=== PATIENT | female | born 1970 | race Caucasian/White ===

== ENCOUNTER 2025-01-06 03:41 | Inpatient (IN) | payer MEDICAID ==
[~2025-01-06] VITALS: Ht 152.4 cm; Wt 116.1 kg
[2025-01-06] VITALS (10 sets, daily range): BP systolic 119–151; BP diastolic 56–79; PULSE 64–95; RESP 12–22; TEMP 97.3–97.8; O2SAT 95–100
--- NOTE | 2025-01-06 03:53 | Physician Documentation ---
History of Present Illness ~ Chief Complaint: Chest Pain Stated Complaint: SEE CHIEF Time Seen by MD: 03:53 HPI 54-year-old female history of pulmonary hypertension presenting for transfer from outside hospital for NSTEMI. She reports she moved into a trailer recently and does not have her nighttime oxygen and has been more and more short of breath. She does not have any chest pain. She went into outside hospital and was found to have elevated troponin of 0.17 increase to 0.22 ng/mL. She had CT angiogram of her chest no evidence of pulmonary embolism scattered areas of mild atelectasis Medication Reconciliation Allergies: Coded Allergies: atropine (Verified Allergy, Unknown, unknown, 01/06/25) codeine (Verified Allergy, Unknown, upset stomach, 01/06/25) demecarium bromide (Verified Allergy, Unknown, unknown, 01/06/25) Scheduled Aspirin (Aspirin), 1 TAB PO DAILY, (Reported) Buspirone Hcl* (Buspar*), 2 TAB PO HS, (Reported) Carvedilol (Coreg), 1 TAB PO Q12H, (Reported) Cholecalciferol (Vitamin D), 1 TAB PO DAILY, (Reported) Divalproex Sodium DR* (Depakote DR*), 2 TAB PO DAILY, (Reported) Fenofibrate Nanocrystallized (TRICOR tablet), 160 MG PO DAILY, (Reported) Fluticasone/Umeclidin/Vilanter (Trelegy Ellipta 200-62.5-25), 1 PUFFS INH DAILY, (Reported) Folic Acid* (Folic Acid*), 1 MG PO DAILY, (Reported) Furosemide (Lasix), 1 TAB PO DAILY, (Reported) Losartan Potassium* (Cozaar*), 1 TAB PO DAILY, (Reported) Lurasidone HCl (Latuda), 1 TAB PO BID, (Reported) Metformin Hcl (Metformin Hcl), 1 TAB PO Q12H, (Reported) Topiramate (Topiramate), PO Q12H, (Reported) Scheduled PRN Albuterol Sulfate (Ventolin Hfa), 2 PUFFS INH Q6H PRN for wheezing, (Reported) Hydrocodone Bit/Acetaminophen 5/325 MG (Forsan 5/325 MG), 1 TAB PO Q4HPRN PRN for pain, (Reported) Review of Systems All Other Systems at this time: Reviewed and Negative Respiratory: Reports: shortness of breath, SOB with exertion; Denies: cough Cardiovascular: Denies: chest pain Physical Exam Physical Exam Chronically ill-appearing no acute distress Cardiac no murmur Pulmonary no wheezing no rhonchi no rales Abdomen soft nontender Lower extremity no edema Progress Results/Orders Reviewed/noted all lab results: Yes Results/Orders Orders - JENNIFER GIMENEZ MD Monitor (01/06/25 03:51) Saline Lock (01/06/25 03:51) Oxygen (01/06/25 03:51) Hs Troponin I W Calculations (01/06/25 05:51) Hs Troponin I W Calculations (01/06/25 06:51) Heparin 25,000 Unit/250ml Bag (Heparin 2 (01/06/25 03:55) Heparin 10,000 Unit/Ml 1ml (Heparin 10,0 (01/06/25 03:55) Cbc/Diff (01/07/25 03:00) Cbc/Diff (01/08/25 03:00) Cbc/Diff (01/09/25 03:00) Cbc/Diff (01/10/25 03:00) Cbc/Diff (01/11/25 03:00) Page Hospitalist (01/06/25 04:28) Fill Out Med Reconciliation (01/06/25 04:28) PTT (01/06/25 04:48) Heparin 10,000 Unit/Ml 1ml (Heparin 10,0 (01/06/25 04:50) Heparin 25,000 Unit/250ml Bag (Heparin 2 (01/06/25 04:50) Heparin 10,000 Unit/Ml 1ml (Heparin 10,0 (01/06/25 04:50) Completed Orders - JENNIFER GIMENEZ MD Cbc/Diff (01/06/25 03:51) PBNP (01/06/25 03:51) Electrocardiogram (01/06/25 03:51) CMP (01/06/25 03:51) Hs Troponin I W Calculations (01/06/25 03:51) Cardiac Ptt (01/06/25 03:51) Pt Inr (01/06/25 03:51) Vital Signs 01/06/25 01/06/25 03:52 03:59 Temp 98.1 Pulse 97 Resp 22 20 B/P (MAP) 151/90 Pulse Ox 96 Laboratory Tests Test 01/06/25 04:00 White Blood Count 9.1 Red Blood Count 4.49 Hemoglobin 13.0 Hematocrit 39.1 Mean Corpuscular Volume 87.1 Mean Corpuscular Hemoglobin 28.9 Mean Corpuscular Hemoglobin Concent 33.2 Red Cell Distribution Width 16.5 H Platelet Count 350 Mean Platelet Volume 7.9 Neutrophils (%) (Auto) 57.5 Lymphocytes (%) (Auto) 29.4 Monocytes (%) (Auto) 10.4 Eosinophils (%) (Auto) 1.7 Basophils (%) (Auto) 1.0 Neutrophils # (Auto) 5.2 Lymphocytes # (Auto) 2.7 Monocytes # (Auto) 0.9 Eosinophils # (Auto) 0.2 Basophils # (Auto) 0.1 CBC Comment Prothrombin Time 10.9 INR International Normalized Ratio 1.1 APTT (Heparin Protocol) 44 L Coagulation Comments Sodium Level 133 L Potassium Level 3.8 Chloride Level 101 Carbon Dioxide Level 21.4 L Anion Gap 11 Blood Urea Nitrogen 6 L Creatinine 0.59 Estimated GFR/1.73 m2 > 90 BUN/Creatinine Ratio 10.2 Glucose Level 97 Calcium Level 8.6 Total Bilirubin 0.4 Aspartate Amino Transf (AST/SGOT) 28 Alanine Aminotransferase (ALT/SGPT) 23 Alkaline Phosphatase 48 Troponin I High Sensitivity 423 *H Pro-B-Type Natriuretic Peptide 231 H Total Protein 6.5 Albumin 3.4 Globulin 3.1 Albumin/Globulin Ratio 1.1 Chemistry Comments EKG/XRAY/CT/US/VASC/MRI EKG : Additional Comment EKG independently interpreted by myself time 0343 indication shortness of breath normal sinus rhythm rate 97 normal axis normal intervals no ST or T-wave abnormalities Medical Decision Making Additional info obtained from: old records Additional Information Pulmonary embolism, pulmonary hypertension, acute coronary syndrome Departure Disposition: ADMITTED INPATIENT Admitted to Inpatient Unit: to hospitalist Impression: Primary Impression: Pulmonary hypertension Additional Impression: NSTEMI (non-ST elevated myocardial infarction) Referrals: NO PRIMARY CARE PROVIDER (PCP) Critical Care Note Total Time (mins): 30 Critical Care Note The very real possibility of a deterioration of this patient's condition required the highest level of my preparedness for sudden, emergent intervention. I provided critical care services, which included medication orders, frequent reevaluations of the patient's condition and response to treatment, ordering and reviewing test results, and discussing the case with various consultants. Excludes time spent performing separately billable procedures. The critical care time associated with the care of the patient was 30 minutes in the acute management of NSTEMI Signature Scribe Signature: osito Attestation: JENNIFER Sutton MD January 06, 2025 03:53
--- NOTE | 2025-01-06 03:54 | ELECTROCARDIOGRAPH REPORT ---
[facility] Test Date: 2025-01-06 Test Time: 03:43:38 Pat Name: AGNIESZKA GARCIA Department: SHORT STAY 1ST FLOOR Room: [place] [address] Gender: F Claims Vice President: MARIELENA : 1970 Requested By: JENNIFER GIMENEZ Order Number: [id number] Reading MD: Dr. Zuly Anguiano Measurements Intervals [place] Rate: 97 P: 35 ID: [id number] QRS: -64 QRSD: 116 T: -30 QT: 393 QTc: 500 Interpretive Statements Sinus rhythm Nonspecific IVCD with LAD DRY ROOM ATTENDANT Inferior infarct, age indeterminate Electronically Signed On 01-06-2025 18:51:[address] Zuly Anguiano Please click the below link to view image of tracing.
[2025-01-06 04:17] LABS: BASOPHILS # (AUTO) 0.1 X10'3 (0-0.2); EOSINOPHILS # (AUTO) 0.2 X10'3 (0-0.9); EOSINOPHILS % (AUTO) 1.7 % (0-6); HEMATOCRIT 39.1 % (35.0-45.0); LYMPHOCYTES # (AUTO) 2.7 X10'3 (1.1-4.8); LYMPHOCYTES % (AUTO) 29.4 % (21-51); MEAN CORPUSCULAR HEMOGLOBIN 28.9 PG (27.0-31.0); MEAN CORPUSCULAR HGB CONC 33.2 g/dL (33.0-36.5); MEAN CORPUSCULAR VOLUME 87.1 FL (78-98); MEAN PLATELET VOLUME 7.9 FL (7.4-10.4); MONOCYTES # (AUTO) 0.9 X10'3 (0-0.9); MONOCYTES % (AUTO) 10.4 % (2-12); NEUTROPHILS # (AUTO) 5.2 X10'3 (1.8-7.7); NEUTROPHILS % (AUTO) 57.5 % (42-75); PLATELET COUNT 350 X10'3 (140-440); RED BLOOD COUNT 4.49 X10'6 (4.20-5.60); RED CELL DISTRIBUTION WIDTH 16.5 % (11.5-14.5); WHITE BLOOD COUNT 9.1 X10'3 (4.5-11.0)
[2025-01-06 04:26] LABS: INR 1.1 INR; PROTHROMBIN TIME 10.9 SECONDS (9.0-12.0)
[2025-01-06 04:33] LABS: ALANINE AMINOTRANSFERASE 23 U/L (12-78); ALBUMIN 3.4 G/DL (3.4-5.0); ALBUMIN/GLOBULIN RATIO 1.1 (1.1-1.5); ALKALINE PHOSPHATASE 48 IU/L (46-116); ANION GAP 11 (8-16); ASPARTATE AMINO TRANSFERASE 28 U/L (10-37); BILIRUBIN,TOTAL 0.4 MG/DL (0.1-1.0); BLOOD UREA NITROGEN 6 MG/DL (7-18); BUN/CREATININE RATIO 10.2 (10.0-20.0); CALCIUM 8.6 MG/DL (8.5-10.1); CHLORIDE 101 MMOL/L (99-107); CREATININE 0.59 MG/DL (0.40-0.90); GLUCOSE 97 MG/DL (70-104); POTASSIUM 3.8 MMOL/L (3.5-5.1); SODIUM 133 MMOL/L (135-145); TOTAL CARBON DIOXIDE 21.4 MMOL/L (24-32); TOTAL PROTEIN 6.5 G/DL (6.4-8.2); eCRCL 79 ML/MIN; eGFR > 90 ML/MIN
[2025-01-06] MEDS ORDERED: TOPI-95 PO (04:33)
[2025-01-06] MEDS ORDERED: DIVA-76 PO (04:33)
[2025-01-06] MEDS ORDERED: CHOL100025 PO (04:33)
[2025-01-06] MEDS ORDERED: BUSP10TA11 PO (04:33)
[2025-01-06] MEDS ORDERED: LURA80TA2 PO (04:33)
[2025-01-06] MEDS ORDERED: HYDR-3965 PO (04:33)
[2025-01-06] MEDS ORDERED: FLUT1BLS16 INH (04:33)
[2025-01-06] MEDS ORDERED: FOLI0.4T6 PO (04:33)
[2025-01-06] MEDS ORDERED: ASPI-1265 PO (04:33)
[2025-01-06] MEDS ORDERED: FURO-150 PO (04:33)
[2025-01-06] MEDS ORDERED: METF-436 PO (04:33)
[2025-01-06] MEDS ORDERED: FENO48TA15 PO (04:33)
[2025-01-06] MEDS ORDERED: ALBU18HF2 INH (04:33)
[2025-01-06] MEDS ORDERED: CARV3.12 PO (04:33)
[2025-01-06] MEDS ORDERED: LOSA-415 PO (04:33)
[2025-01-06 04:41] LABS: PRO BRAIN NATRIURETIC PEPTIDE 231 PG/ML (0-125)
[2025-01-06] MEDS ORDERED: heparin 25,000 UNIT/250ml bag 250 ML IV PRN (04:50)
[2025-01-06] MEDS ORDERED: heparin 10,000 units/1 ML INJ IV PRN (04:50)
[2025-01-06] MEDS: heparin 10,000 units/1 ML INJ IV ONE (04:53)
[2025-01-06] MEDS: heparin 25,000 UNIT/250ml bag 250 ML IV PRN (05:03)
[2025-01-06] MEDS ORDERED: docusate sod 100mg capsule PO PRN (05:25)
[2025-01-06] MEDS ORDERED: magnesium sulf-water 4G/100mL 100 ML IV PRN (05:25)
[2025-01-06] MEDS ORDERED: magnesium Cl slow-release 64mg tablet PO PRN (05:25)
[2025-01-06] MEDS ORDERED: acetaminophen 325mg tablet PO PRN (05:25)
[2025-01-06] MEDS ORDERED: mag hydrox/Alum hydrox/simeth 30ml oral suspension PO PRN (05:25)
[2025-01-06] MEDS ORDERED: potassium Cl 40MEQ/1/2NS 520ml 520 ML IV PRN (05:25)
[2025-01-06] MEDS ORDERED: morphine 2 MG/ML inj. syringe IV PRN ×2 (05:25)
[2025-01-06] MEDS ORDERED: potassium Cl 20 mEq SR tablet PO PRN ×2 (05:25)
[2025-01-06] MEDS ORDERED: magnesium hydroxide 30ml (MOM) UD suspension PO PRN (05:25)
[2025-01-06] MEDS: PERFLUTREN PROTEIN-A MICROSPHR (Optison) 0.22 MG/ML 3ML VIAL IV ONE (05:25)
[2025-01-06] MEDS ORDERED: magnesium sulf-water 2g/50mL 50 ML IV PRN (05:25)
[2025-01-06] MEDS: MESSAGE TO NURSING IV ONE ×3 (05:26→18:15)
[2025-01-06] MEDS ORDERED: nicotine 21mg patch - 24 hr TD PRN (05:30)
[2025-01-06] MEDS ORDERED: ipratropium/albuterol 3ml nebule NEB PRN (05:30)
--- NOTE | 2025-01-06 05:41 | HISTORY AND PHYSICAL-Residence ---
History & Physical Providers to CC Resident Creating Document: ALBERT CHAPARRO RES ~ History of Present Illness Primary Medical Doctor: Ethan Gutiérrez [facility] Reason for Admit\Complaint: T2MI with SOB from CHF exacerbation, U/L PHTN History of Present Illness A 54 years old female with a past medical history of asthma, COPD, T2 DM, diastolic CHF with unknown ejection fraction, hypertension, ADI with class four obesity BMI 50, pulmonary hypertension, UTI history, mental issues with bipolar disorder, schizophrenia, mood disorder, anxiety, psychogenic dysphonia and S/p multiple orthopedic surgeries presented with acute progressive shortness of breath and generalized weakness with the given away bilateral feet to stand up since last night. She was transferred from the [facility] for the elevated Trop and progressive SOB, put her on the IV heparin for the further management. She endorsed that she has been having lacking of her home oxygen which is 2L/ min [place] around the dinner time and all nights when she moved to the new residential area for two-five days now in addition of her Trelogy machine has not been set up yet as well. She started having the progressive SOB which was associated with the swelling over the bilateral legs but denied for the Orthopnea and PND as long as she is on the night time oxygen supply. She usually takes Lasix 20 mg at home alternative days only as she developed hyponatremia. She denies any chest pressure or pain, nausea and vomiting, back pain, coughing, and bed resting. She is fully ambulatory and not having any recent malignancy and its treatment, long distance travelling history. She was found to have elevated Troponin levels in [facility] and put her on IV heparin. Her CTA chest is cleared for acute PE. She is regularly using her inhalers for her COPD and asthma. Allergies: Coded Allergies: atropine (Verified Allergy, Unknown, unknown, 01/06/25) codeine (Verified Allergy, Unknown, upset stomach, 01/06/25) demecarium bromide (Verified Allergy, Unknown, unknown, 01/06/25) Home Medications Home Medications Active Reported Ventolin Hfa (Albuterol Sulfate) 90 Mcg Hfa.aer.ad 2 Puffs INH Q6H PRN 30 Days Trelegy Ellipta 200-62.5-25 (Fluticasone/Umeclidin/Vilanter) 200-62.5 Blst.w.dev 1 Puffs INH DAILY 30 Days Topiramate 50 Mg Tablet PO Q12H 30 Days Kell 5/325 MG (Acetaminophen/Hydrocodone Bitart) 5 Mg/325 Mg Tablet 1 Tab PO Q4HPRN PRN 3 Days Metformin Hcl 500 Mg Tablet 1 Tab PO Q12H 30 Days Cozaar* (Losartan Potassium) 25 Mg Tablet 1 Tab PO DAILY 30 Days Latuda (Lurasidone HCl) 80 Mg Tablet 1 Tab PO BID 30 Days Lasix (Furosemide) 20 Mg Tablet 1 Tab PO DAILY 30 Days Folic Acid* (Folic Acid) 0.4 Mg Tablet 1 Mg PO DAILY 30 Days TRICOR tablet (Fenofibrate Nanocrystallized) 48 Mg Tablet 160 Mg PO DAILY [address]* (Divalproex Sodium) 500 Mg Tablet.dr 2 Tab PO DAILY 30 Days Coreg (Carvedilol) 3.125 Mg Tablet 1 Tab PO Q12H 30 Days Vitamin D (Cholecalciferol) 1,000 Unit Tablet 1 Tab PO DAILY 30 Days Buspar* (Buspirone HCl) 10 Mg Tablet 2 Tab PO HS Aspirin 81 Mg Tab.chew 1 Tab PO DAILY 30 Days Past Medical History Past Medical History asthma, COPD, T2 DM, diastolic CHF with unknown ejection fraction, hypertension, ADI with class four obesity BMI 50, pulmonary hypertension, UTI history, mental issues with bipolar disorder, schizophrenia, mood disorder, anxiety, psychogenic dysphonia Past Surgical History Surgical History Comment S/p multiple orthopedic surgeries Past Social History Social History Comment She is in chronic smoker, still smoking and smokes 1-1/2 pack of cigarettes, marijuana, denies using any illicit drugs. She is a chronic alcohol user with 8-14 oz of beers every day. She currently moved to the [facility] area and she can walk around without using any walking aids. ROS All Other Systems: Reviewed and Negative ROS Hours were reviewed WNL, except for the above-mentioned in HPI Respiratory: Reports: shortness of breath, SOB with exertion; Denies: cough Cardiovascular: Denies: chest pain Exam Vitals: Vital Signs Date Time Temp Pulse Resp B/P (MAP) Pulse Ox O2 Delivery O2 Flow Rate FiO2 01/06/25 05:05 92 15 130/75 (93) 100 2.0 01/06/25 03:52 98.1 General: General: Well alert, well oriented, not confused, not agitated, not in acute distress, well cooperated during the physical. HEENT: HEENT: Conjunctive are pink, sclerae clear, no icterus, pupil is equal in both sides, reactive to light, no ear discharge, no pharyngeal erythema or an edema, mouth and lips are moist. Neck: Neck: Supple, no JVD, no lymphadenopathy and thyromegaly. Chest: Lungs:Equal air entry on both lungs, no additional sounds except for the bilateral basal crackles Cardiovascular: Heart: S1-S2 regular sinus rhythm and, regular rate, no gallops, no rubs, no murmurs Abdomen: Abdomen: No visible peristalsis, Bowel sounds present on auscultation, soft, nontender, no guarding, no rigidity Extremities: Extremities: No obvious deformities, 2+ pitting edema bilaterally, capillary refill intact, able to wiggle toes both sides, peripheral pulsations are intact on both sides Central Nervous System: SHOP DIRECTOR: No focal neurological deficits, no motor and sensory weakness in all 4 extremities, could move all 4 extremities Musculoskeletal: Musculoskeletal: No joint swelling, deformities, inflammations, and no scoliosis and back tenderness Skin: Skin: No active skin lesions and rashes Diagnostic Data Last Recorded Lab Results: 01/06/25 0400 01/06/25 0400 Diagnostic Data: Laboratory Tests Test 01/06/25 04:00 Prothrombin Time 10.9 SECONDS (9.0-12.0) INR International Normalized Ratio 1.1 INR APTT (Heparin Protocol) 44 SECONDS (45-60) L Coagulation Comments Counseling Services Smoking & Tobacco Cessation: 3-10 Minutes Advance Care Planning Advanced Care plannin - 30 Minutes Additional Plan A 54 years old female with a past medical history of asthma, COPD, T2 DM, diastolic CHF with unknown ejection fraction, hypertension, ADI with class four obesity BMI 50, pulmonary hypertension, UTI history, mental issues with bipolar disorder, schizophrenia, mood disorder, anxiety, psychogenic dysphonia and S/p multiple orthopedic surgeries presented with acute progressive shortness of breath and generalized weakness with the given away bilateral feet to stand up since last night. # acute hypoxic respiratory failure from acute on chronic CHF with unknown EF exacerbation # elevated troponin-likely type 2 AR from acute hypoxic respiratory failure # elevated proBNP -2D echo was pending -patient was transferred from [facility] on current IV heparin with no chest pain, no significant ST-T changes in EKG -please consider for cardiology consultation, to rule out ACS -given one time dose of 40 mg Lasix in ER, followed by 20 mg b.i.d. -continue her baseline oxygen 2 L/min -PT eval # pulmonary hypertension # COPD, asthma-not exacerbation # ADI class four obesity BMI 50 # T2DM -her CPAP/BiPAP was not set up at home yet -continue CPAP at night -continue her home medication metformin -continue ipratropium/albuterol inhalation q.6 hours as needed # electrolyte imbalance-hyponatremia -current sodium 133 with no neurological symptoms -continue monitoring including neurological monitoring, currently on IV Lasix therapy for her CHF exacerbation -please plan to downgrade or adjust lasix as per pt's condition # history of multiple mental issues- bipolar disorder, schizophrenia, mood disorder, anxiety, psychogenic dysphonia -home medication reconciliation was done, continue appropriately CODE STATUS: Full code DVT prophylaxis: Sc heparin Analgesia/sedation: Acetaminophen/IV morphine as needed Lines/tubes: Peripheral lines GI prophylaxis: None Nutrition: Heart healthy Prognosis-guarded Disposition: Continue medical management, cardiology consultation, pending 2D echo, monitoring electrolytes, PT eval and DC plan. Resident MD attestation: Patient was seen, examined and discussed with attending MD, Dr. Gil CHAPARRO MD Internal Medicine Resident, PGY2 [facility] Attending Physician Attestation Evaluation via HIPAA compliant AV device. I discussed the case with the resident and I agree with the resident's documentation. 54-year-old woman with a history of multiple chronic health conditions including COPD, chronic hypoxemia requiring supplemental oxygen, pulmonary hypertension and chronic diastolic heart failure now transferred from an outside medical facility for the evaluation of an elevated troponin measurement. The patient has lacked access to her prescribed supplemental oxygen for several days. The treatment plan includes: Usual therapy for probable type 2 NSTEMI with anti-platelet therapy, beta- blockade and IV unfractionated heparin. A Cardiology consultation has been requested. Transthoracic echocardiogram to assess for new focal wall motion abnormalities and to assess LV, RV function as well as to estimate PA pressures. Supplemental O2 to maintain oxygen saturation > 90%. Bronchodilator therapy with albuterol/ipratropium and inhaled corticosteroid therapy with budesonide for treatment of the patient's underlying obstructive lung disease. Time spent 70 minutes. Date of Service: January 06, 2025 Billing Provider: YOVANA SAUCEDA MD, TIN, RES January 06, 2025 05:41 YOVANA SAUCEDA MD January 06, 2025 07:52
[2025-01-06] MEDS: furosemide 10 MG/1 ML 10ml inj IV ONE (05:55)
[2025-01-06] MEDS ORDERED: HYDROcodone/acetaminophen 5mg/325mg tablet PO PRN (06:25)
--- NOTE | 2025-01-06 07:03 | RADIOLOGY REPORT ---
EXAM: XR Chest, 1 View CLINICAL INDICATION: Hx of CHF, PHTN, c/o SOB TECHNIQUE: Frontal view of the chest. COMPARISON: None FINDINGS: LUNGS AND PLEURAL SPACES: Unremarkable. No consolidation. No pneumothorax. HEART: Cardiomegaly without overt failure. MEDIASTINUM: Unremarkable. Normal mediastinal contour. BONES/JOINTS: Unremarkable. No acute fracture. OTHER FINDINGS: . IMPRESSION: Cardiomegaly without overt failure.
[2025-01-06 07:32] LABS: URINE AMPHETAMINE SCREEN NEGATIVE (Neg); URINE BARBITUATE SCREEN NEGATIVE (Neg); URINE BENZODIAZEPINES SCREEN NEGATIVE (Neg); URINE CANNABINOID SCREEN POSITIVE (Neg); URINE COCAINE SCREEN NEGATIVE (Neg); URINE METHADONE SCREEN NEGATIVE (Neg); URINE OPIATE SCREEN NEGATIVE (Neg); URINE PHENCYCLIDINE SCREEN NEGATIVE (Neg)
[2025-01-06] MEDS ORDERED: dextrose 50%-water 50ml dispensing syringe IV PRN ×2 (07:40)
[2025-01-06] MEDS ORDERED: DEXTROSE 15 GM of carb/4 tabs (each vial/BOTTLE has 4 tablets) PO PRN ×2 (07:40)
[2025-01-06] MEDS ORDERED: glucagon, human recombinant 1mg kit SUBCUT PRN (07:40)
[2025-01-06 07:57] LABS: PHOSPHORUS 3.1 MG/DL (2.3-4.5); THYROID STIMULATING HORMONE 0.84 ulU/ml (0.34-4.50)
[2025-01-06] MEDS: K and/or MAG REPLACEMENT MC SCH (08:00)
[2025-01-06] MEDS ORDERED: metFORMIN 500mg tablet PO SCH (08:00)
[2025-01-06 08:03] LABS: BILIRUBIN,URINE NEGATIVE (Neg); CLARITY,URINE SLIGHTLY CLOUDY (Clear); COLOR,URINE STRAW (Yellow); GLUCOSE, URINE NEGATIVE (Neg); KETONES,URINE NEGATIVE (Neg); LEUKOCYTE ESTERASE ,URINE SMALL (Neg); NITRITES, URINE POSITIVE (Neg); OCCULT BLOOD,URINE TRACE-INTACT (Neg); PROTEIN,URINE NEGATIVE (Neg); UROBILINOGEN,URINE 0.2 E.U/dL (0.2-1.0)
[2025-01-06 08:10] LABS: CHOL/HDL RATIO 2.1 (0.00-4.99); CHOLESTEROL 144 MG/DL (0-200); HDL CHOLESTEROL 69 MG/DL (35-60); LDL CHOLESTEROL 50 MG/DL (50-100); TRIGLYCERIDES 91 MG/DL (20-135)
[2025-01-06 08:14] LABS: HEMOGLOBIN A1C 5.3 % (4.5-6.2)
[2025-01-06] MEDS: ipratropium/albuterol 3ml nebule NEB PRN (08:22)
[2025-01-06 08:24] LABS: UA COLLECTION TYPE VOIDED
[2025-01-06] MEDS: folic acid 0.4mg tablet PO SCH (08:24)
[2025-01-06] MEDS: lurasidone 20mg tablet PO SCH (08:24)
[2025-01-06 08:25] LABS: BACTERIA,URINE 4+ /HPF (Neg); MUCUS STRANDS NONE SEEN /LPF (Neg); RBC,URINE NONE SEEN /HPF (0-2); SQUAMOUS EPITHELIAL CELL,UR FEW /LPF (FEW)
[2025-01-06] MEDS: carVEDilol 3.125mg tablet PO SCH (08:25)
[2025-01-06] MEDS: fenofibrate 48mg tablet PO SCH (08:25)
[2025-01-06] MEDS: divalproex sodium 500mg tablet.DR PO SCH (08:26)
[2025-01-06] MEDS: losartan 25mg tablet PO SCH (08:27)
[2025-01-06] MEDS: cholecalciferol (vitamin D3) 1,000 unit (25mcg) tablet PO SCH (08:28)
[2025-01-06] MEDS: aspirin 81mg tab.chew PO SCH (08:28)
[2025-01-06] MEDS: heparin 10,000 units/1 ML INJ IV PRN (11:11)
[2025-01-06] MEDS: atorvastatin 20mg tablet PO ONE (11:14)
[2025-01-06] MEDS: INSULIN LISPRO 100 UNIT/ML INSULN.PEN MULTI-DOSE SQ SCH (12:00)
--- NOTE | 2025-01-06 17:04 | CARDIOLOGY REPORT ---
APPROVED REPORT EXAM: Comprehensive 2D, Doppler, and color-flow Echocardiogram. Patient Location: 302 Heart Rate: 95 bpm Rhythm: NSR Indications CONGESTIVE HEART FAILURE ELEVATED PRO BNP 231 HS TROPONIN 423,411 COPD HTN DIGITAL TECH None. PRIOR ECHOCARDIOGRAM: None. 2D Dimensions RVDd 2.8 cm IVSd 1.5 (0.7-1.1cm) LVDd 4.2 cm PWd 1.7 (0.7-1.1cm) IVSs 1.6 (0.8-1.2cm) LVDs 2.9 (2.5-4.0cm) PWs 1.7 (0.8-1.2cm) LVOT Diameter 1.99 (1.8-2.4cm) LVEF(%) 65.0 (>50%) FS (%) 33.0 % SV 46.8 ml CO 4.5 L/min M-Mode Dimensions Left Atrium(MM) 4.48 (2.5-4.0cm) Aortic Root 3.48 (2.2-3.7cm) Aortic Cusp Exc 2.04 (1.5-2.0cm) Aortic Valve AoV Peak Dwayne. 191.4 cm/s AoV VTI 36.4 cm AO Peak GR. 14.7 mmHg AO Mean GR. 7 mmHg LVOT VTI 28.06 cm LVOT Peak Dwayne. 123.7 cm/s ABIGAIL(VTI)/BSA 2.41 cm2/m2 ABIGAIL (VTI) 2.41 cm2 Mitral Valve MV E Velocity 89.1 cm/s MV Peak Gr. 4 mmHg MV DECEL TIME 256 ms MV A Velocity 94.2 cm/s MV PHT 52 ms E/A Ratio 0.9 MVA (PHT) 4.23 cm2 MV [id number] cm/s LEFT VENTRICLE Normal LV size and function. Mild concentric hypertrophy. LVEF is 65%. RIGHT VENTRICLE RV is normal size and function. ATRIA Left atrium is mildly dilated. The right atrium size is normal. AORTIC VALVE Trileaflet AV appears mildly sclerotic without stenosis. No insufficiency. MITRAL VALVE The mitral valve is normal in structure. Mild mitral annular calcification. No insufficiency. TRICUSPID VALVE TV appears structurally normal with no regurgitation. PULMONIC VALVE Pulmonic valve is not well visualized. GREAT VESSELS Aortic root is normal in size. PERICARDIUM Normal pericardium. No effusion. Other Information Study Quality: Fair Technically limited study due to Body habitus. Conclusion Normal LV size and function. Mild concentric hypertrophy. LVEF is 65%. RV is normal size and function. Left atrium is mildly dilated. The right atrium size is normal. Trileaflet AV appears mildly sclerotic without stenosis. No insufficiency. The mitral valve is normal in structure. Mild mitral annular calcification. No insufficiency. TV appears structurally normal with no regurgitation. Normal pericardium. No effusion.
[2025-01-06] MEDS: ondansetron/PF 4mg/2ml inj IV PRN (17:22)
[2025-01-06] MEDS ORDERED: aminophylline 500mg/20ml vial IV PRN (18:30)
[2025-01-06] MEDS ORDERED: metoprolol tartrate 1mg/ml inj IV PRN (18:30)
[2025-01-06] MEDS ORDERED: nitroGLYCERIN 0.4mg SUBLingual tab SL PRN (18:30)
--- NOTE | 2025-01-06 18:34 | PROGRESS NOTE ---
Daily Progress Note Providers to CC ~ Antibiotic Timeout Antibiotic Ordered?: No Subjective Patient has been chest pain-free and has not never experienced chest pain during this episode however she has been out of her oxygen for a couple of days due to not having the power set up in her trailer and thus she did not have her nocturnal oxygen or trilogy machine at night. The patient came to the ED because she was experiencing lower extremity weakness I could not get up the stairs- her initial high sensitivity troponin was 423 in his downtrended to 379- Dr. aNik bass fisher recommended to obtain a stress test in the morning the patient will remain on heparin drip. Objective Vital Signs Date Time Temp Pulse Resp B/P (MAP) Pulse Ox O2 Delivery O2 Flow Rate FiO2 01/06/25 15:00 97.4 83 20 132/56 (81) 100 Nasal Cannula 2.0 01/06/25 08:24 28 Result Diagram: 01/06/25 0400 01/06/25 0548 Gen. No acute distress alert and oriented �4, morbidly obese Lungs clear to ascultation bilaterally, no wheezes rales or rhonchi appreciated Heart normal sinus rhythm no murmurs rubs or clicks noted Abdomen soft nontender bowel sounds are normoactive Lower extremities no clubbing cyanosis, nor edema appreciated bilaterally Coagulation Studies Laboratory Tests Test 01/06/25 04:00 01/06/25 17:36 Prothrombin Time 10.9 SECONDS (9.0-12.0) INR International Normalized Ratio 1.1 INR APTT (Heparin Protocol) 70 SECONDS (45-60) H Coagulation Comments Problem\Assessment\Plan Problems/Diagnosis: (1) NSTEMI (non-ST elevated myocardial infarction) # NSTEMI- Troponins are downtrending Evaluated by cardiology whom recommended a stress test in the morning The patient had an echocardiogram which demonstrated an LVEF of 65% Received carvedilol and atorvastatin # bipolar/ schizophrenia Continue all home medications # [id number] diabetes mellitus- blood sugars are under good control Hemoglobin A1c is 5.3 And a hyper and hypoglycemic protocol # Tobacco abuse-I spent 12 minutes on the morning of 01/06/2025 discussing smoking cessation with the patient including the risk of continuing smoke: Lung cancer, stroke, heart attack, poor wound healing, increased in facial wrinkling, cigarette smoke also leads a foul smell on clothing and fabrics, risk of MRSA skin infections. How cigarettes have been scientifically engineered to be as addictive as humanly possible. The patient refused any nicotine replacement therapy. Date of Service: January 06, 2025 Billing Provider: MARCIA GOMEZ DO Common Visit Codes: NOT BILLABLE (Admitted after midnight to be billed by sand cutting machine operator) Secondary Visit Codes: 11275-[id number] CHNG SMOKING >10MIN MARCIA GOMEZ DO January 06, 2025 18:34
[2025-01-06] MEDS: furosemide 20 MG/2 ML vial IV SCH (19:11)
[2025-01-06] MEDS: busPIRone 5mg tablet PO SCH (20:54)
[2025-01-06] MEDS: divalproex sodium 500mg tablet.DR PO ONE (21:41)
[2025-01-07] VITALS (15 sets, daily range): BP systolic 112–147; BP diastolic 62–89; PULSE 76–100; RESP 11–25; TEMP 97.1–98.1; O2SAT 93–100
[2025-01-07 00:20] LABS: BASOPHILS % (AUTO) 0.3 % (0-1); EOSINOPHILS # (AUTO) 0.2 X10'3 (0-0.9); HEMATOCRIT 35.4 % (35.0-45.0); HEMOGLOBIN 11.9 g/dl (12.0-16.0); LYMPHOCYTES # (AUTO) 3.2 X10'3 (1.1-4.8); LYMPHOCYTES % (AUTO) 35.3 % (21-51); MEAN CORPUSCULAR HEMOGLOBIN 29.1 PG (27.0-31.0); MEAN CORPUSCULAR HGB CONC 33.6 g/dL (33.0-36.5); MEAN CORPUSCULAR VOLUME 86.6 FL (78-98); MEAN PLATELET VOLUME 8.2 FL (7.4-10.4); MONOCYTES % (AUTO) 10.7 % (2-12); NEUTROPHILS # (AUTO) 4.7 X10'3 (1.8-7.7); NEUTROPHILS % (AUTO) 51.7 % (42-75); PLATELET COUNT 299 X10'3 (140-440); RED BLOOD COUNT 4.09 X10'6 (4.20-5.60); RED CELL DISTRIBUTION WIDTH 16.5 % (11.5-14.5)
[2025-01-07 00:37] LABS: ALANINE AMINOTRANSFERASE 25 U/L (12-78); ALBUMIN 3.1 G/DL (3.4-5.0); ALBUMIN/GLOBULIN RATIO 1.1 (1.1-1.5); ALKALINE PHOSPHATASE 42 IU/L (46-116); ANION GAP 7 (8-16); ASPARTATE AMINO TRANSFERASE 24 U/L (10-37); BILIRUBIN,TOTAL 0.6 MG/DL (0.1-1.0); BLOOD UREA NITROGEN 12 MG/DL (7-18); BUN/CREATININE RATIO 15.2 (10.0-20.0); CALCIUM 8.4 MG/DL (8.5-10.1); CHLORIDE 101 MMOL/L (99-107); CHOL/HDL RATIO 1.8 (0.00-4.99); CHOLESTEROL 131 MG/DL (0-200); CREATININE 0.79 MG/DL (0.40-0.90); GLUCOSE 114 MG/DL (70-104); HDL CHOLESTEROL 71 MG/DL (35-60); LDL CHOLESTEROL 40 MG/DL (50-100); POTASSIUM 3.8 MMOL/L (3.5-5.1); SODIUM 135 MMOL/L (135-145); TOTAL CARBON DIOXIDE 27.3 MMOL/L (24-32); TRIGLYCERIDES 79 MG/DL (20-135); eCRCL 59 ML/MIN; eGFR 76 ML/MIN
[2025-01-07] MEDS: MESSAGE TO NURSING IV ONE ×4 (01:32→21:10)
[2025-01-07] MEDS: fenofibrate 48mg tablet PO SCH (08:00)
[2025-01-07] MEDS: atorvastatin 20mg tablet PO SCH (08:00)
[2025-01-07] MEDS: regadenoson 0.4mg/5ml syringe IV PRN (10:07)
[2025-01-07] MEDS: folic acid 1mg tablet PO SCH (11:09)
[2025-01-07] MEDS: lurasidone 60mg tablet PO SCH (11:12)
--- NOTE | 2025-01-07 11:19 | CONSULTATION ---
DATE OF CONSULTATION: 01/06/2025 DICTATING PHYSICIAN: WHITNEY Naik MD CARDIOLOGY CONSULTATION PRIMARY PHYSICIAN: [facility]. IDENTIFICATION: A 54-year-old morbidly obese female with COPD, sleep apnea, continued smoking with increasing shortness of breath. HISTORY OF PRESENT ILLNESS: The patient is a 54-year-old postmenopausal, morbidly obese female with chronic history of smoking who continues to smoke, COPD, sleep apnea. Apparently, was moving from her regular house into a mobile home trailer and did not have her oxygen for the last 4 days, became intermittently short of breath and went to [facility] and was found to have elevated troponin and transferred to [facility]. The patient also has psychiatric problem with bipolar disorder, under psychiatric care, Dr. Vickie Carlisle at [facility]. The patient generally lives with her who also has disability and cerebral palsy, walks just inside the house less than 50 feet, becomes short of breath, cannot negotiate a pill. No history of chest pain or palpitations. Does have ankle swelling. Apparently, the patient was diagnosed with congestive heart failure back in 2013 and takes Lasix. PAST MEDICAL HISTORY: * Diabetes for more than 10 years. * COPD. * Hyperlipidemia. * Hypertension. * Bronchial asthma, COPD. Continued smoking. The patient started smoking early on like age 13, used to smoke 4-pack per day. Had to quit for a short time, resumed again. Now, she smokes one and half packs per day. No history of alcohol intake. The patient has been on oxygen since 2019, 2 liters per minute. Does not see any shoveler. PAST SURGICAL HISTORY: Right ankle surgery, some eyelid surgeries when she was small. FAMILY HISTORY: Father at age 43 because of CHF. Mother is alive, 77 years old. REVIEW OF SYMPTOMS: Uses reading glasses, impaired hearing in the right ear. Has anxiety and depression and psychiatric issues. No prior history of CVA. Endocrine, has diabetes. PHYSICAL EXAMINATION: GENERAL: The patient is conscious, alert, and oriented. VITAL SIGNS: Pulse 93, blood pressure 119/70. NECK: No JVD. Carotids are equally well felt. CARDIAC: Regular rate and rhythm. S1 and S2 normal. No S3 or S4. LUNGS: Decreased sounds bibasilarly. EXTREMITIES: Bilateral ankle swelling. LABORATORY DATA: Labs include WBC of 9.1, hemoglobin 13, hematocrit 39.1, and platelets count 350. Sodium of 133, potassium 3.8, chloride 101, carbon dioxide 21, BUN 66, creatinine 0.59. Troponins 423, decreased to 411 and 379. DIAGNOSTIC DATA: Echocardiogram showed normal LV wall motion with 65%. No significant valvular abnormalities. IMPRESSION AND PLAN: * A 54-year-old female with COPD exacerbation, could not have regular oxygen and BiPAP for the last 4 days, under increased stress and anxiety, increased shortness of breath, getting better with resumption of her oxygen therapy; however, management per hospitalist. * Mild elevation troponin, probably type 2, may be related to her prolonged hypoxia or lack of oxygen. The option of further evaluation of myocardial perfusion scan, risks, benefits, and alternative options discussed with the patient. The patient wants to prefer. We will arrange, continue the same. Continue aspirin, either Lovenox and heparin for now and recommend statin. * Diabetes, hypertension, hyperlipidemia. Extensively counseled on coronary risk factor modification to keep her A1c less than 7%, LDL less than 55 mg%, systolic blood pressure less than 130 mmHg. * Diastolic CHF since 2013. Continue fluid restriction, salt diet Titrate diuretics as required. * COPD with continued smoking. Counseled on smoking cessation. * Obstructive sleep apnea, on CPAP and oxygen at nighttime since 2019. Continue the same. Other comorbidities include morbid obesity, DJD, psychiatric problem with bipolar and schizophrenia. BV MD Gumaro TID: [id number] RECEIPT: [id number] BC/SANCHEZ/AMI MTDD
--- NOTE | 2025-01-07 12:33 | RADIOLOGY REPORT ---
Procedure: NM NM UBALDO SCAN Exam Date: 01/07/2025 09:03 AM Reason for study/Clinical History: NSTEMI Comparison Study: None Myocardial Perfusion Study with SPECT Technique: The patient received an intravenous injection of 8.3 mCi of technetium-99m sestamibi whil e at rest. After a short delay, SPECT tomographic images of the heart were obtained. The patient th en went to the stress lab where they received an intravenous infusion of 0.[address] andard protocol. 20.4 mCi of technetium-99m sestamibi was injected intravenously immediately after the start of the lexiscan infusion. Gated SPECT tomographic images of the heart were acquired and pr ocessed. Findings: Rotating planar images show no significant attenuation artifact. Reversible anterior wall defect. Gated portion of the study shows normal wall motion and myocardial thickening. End-diastolic volume 57 cc. End systolic volume 10 cc The left ventricular ejection fraction is 82 %. (normal greater than 50%) Impression: 1. Reversible anterior wall defect. 2. EF of 82%, which is likely overestimated.
[2025-01-07] MEDS: docusate sod 100mg capsule PO SCH (19:13)
--- NOTE | 2025-01-07 20:17 | PROGRESS NOTE ---
Daily Progress Note Providers to CC ~ Antibiotic Timeout Antibiotic Ordered?: No Subjective The patient remains chest pain-free however did have a positive stress test Dr. Naik coder operator's recommended medical management Objective Vital Signs Date Time Temp Pulse Resp B/P (MAP) Pulse Ox O2 Delivery O2 Flow Rate FiO2 01/07/25 15:00 98.1 82 11 112/64 (80) 99 Nasal Cannula 2.0 01/07/25 08:15 28 Result Diagram: 01/07/25 0005 01/07/25 0005 Gen. No acute distress alert and oriented �4, morbidly obese Lungs clear to ascultation bilaterally, no wheezes rales or rhonchi appreciated Heart normal sinus rhythm no murmurs rubs or clicks noted Abdomen soft nontender bowel sounds are normoactive Lower extremities no clubbing cyanosis, nor edema appreciated bilaterally Coagulation Studies Laboratory Tests Test 01/06/25 04:00 01/07/25 14:07 Prothrombin Time 10.9 SECONDS (9.0-12.0) INR International Normalized Ratio 1.1 INR APTT (Heparin Protocol) 46 SECONDS (45-60) Coagulation Comments Problem\Assessment\Plan Problems/Diagnosis: (1) NSTEMI (non-ST elevated myocardial infarction) # NSTEMI- Troponins are downtrending Evaluated by cardiology whom recommended a stress test in the morning The patient had an echocardiogram which demonstrated an LVEF of 65% Received carvedilol and atorvastatin 01/07- reversible anterior wall defect was seen on Lexiscan stress test- Dr. Naik evaluated the patient and recommended medical management- heparin drip will be discontinued in the a.m. Patient remain on aspirin and Plavix The patient has a LDL of 40 thus I am stopping atorvastatin # hyperlipidemia Continue fenofibrate # bipolar/ schizophrenia Continue all home medications # [id number] diabetes mellitus- blood sugars are under good control Hemoglobin A1c is 5.3 And a hyper and hypoglycemic protocol # Tobacco abuse-I spent 12 minutes on the morning of 01/06/2025 discussing smoking cessation with the patient including the risk of continuing smoke: Lung cancer, stroke, heart attack, poor wound healing, increased in facial wrinkling, cigarette smoke also leads a foul smell on clothing and fabrics, risk of MRSA skin infections. How cigarettes have been scientifically engineered to be as addictive as humanly possible. The patient refused any nicotine replacement therapy. Disposition: Anticipate discharge in the a.m. Date of Service: January 07, 2025 Billing Provider: MARCIA GOMEZ DO Common Visit Codes: [id number] INP/OBS CARE(HIGH) MARCIA GOMEZ DO January 07, 2025 20:17
--- NOTE | 2025-01-07 20:29 | PROGRESS NOTE ---
Progress Note Cardiology Providers to CC ~ Subjective Subjective Patient seen and examined this afternoon. No chest pain or shortness of breath. Objective Result Diagram: 01/07/25 0005 01/07/25 0005 Objective General: Normal body habitus, no acute distress, HEENT: Sclerae clear, PERRL, gums without lesions or bleeding, oropharynx clear without erythema or exudate. Neck: Supple without enlargement of the thyroid, or lymphadenopathy, Chest: Normal size and shape, no tenderness, nonlabored breathing, Breath sounds diminished bibasilarly Heart: Regular in rate and rhythm, S1 and S2 normal, no S3-S4 or murmurs. Abdomen: Soft, nontender, no organomegaly, bowel sounds present. Extremities: Lower extremity edema present. Coagulation Studies Laboratory Tests Test 01/06/25 04:00 01/07/25 20:06 Prothrombin Time 10.9 SECONDS (9.0-12.0) INR International Normalized Ratio 1.1 INR Coagulation Comments Problem\Assessment\Plan Additional Plan 1. * A 54-year-old female with COPD exacerbation, could not have regular oxygen and BiPAP for the last 4 days, under increased stress and anxiety, increased shortness of breath, getting better with resumption of her oxygen therapy; however, management per hospitalist. 2. * Mild elevation troponin, probably type 2, may be related to her prolonged hypoxia or lack of oxygen. Myocardial perfusion scan shows small anterior reversible defect. Option of continued medical therapy versus further evaluation with coronary angiography, risks benefits alternative options Discussed in detail with the patient. Patient wants to quit smoking and can try medical therapy. Recommend aspirin Plavix, beta blockers and statins. Patient to follow up with PMD. 3. * Diabetes, hypertension, hyperlipidemia. Extensively counseled on coronary risk factor modification to keep her A1c less than 7%, LDL less than 55 mg%, systolic blood pressure less than 130 mmHg. 4. * Diastolic CHF since 2013. Continue Diuretics. Titrate diuretics as required. 5. * COPD with continued smoking. Counseled on smoking cessation. 6. * Obstructive sleep apnea, on CPAP and oxygen at nighttime since 2019. Continue the same. Other comorbidities include morbid obesity, DJD, psychiatric problem with bipolar and schizophrenia. DUSTIN VERAS MD January 07, 2025 20:29
[2025-01-07] MEDS: divalproex sodium 500mg tablet.DR PO ONE (22:34)
[2025-01-08 02:00] VITALS: BP 134/85; PULSE 81; RESP 17; TEMP 97; O2SAT 97
[2025-01-08] MEDS: MESSAGE TO NURSING IV ONE (02:22)
[2025-01-08 07:08] LABS: BASOPHILS # (AUTO) 0.1 X10'3 (0-0.2); BASOPHILS % (AUTO) 1.6 % (0-1); EOSINOPHILS # (AUTO) 0.3 X10'3 (0-0.9); EOSINOPHILS % (AUTO) 3.5 % (0-6); HEMATOCRIT 37.5 % (35.0-45.0); HEMOGLOBIN 12.4 g/dl (12.0-16.0); LYMPHOCYTES # (AUTO) 3.3 X10'3 (1.1-4.8); LYMPHOCYTES % (AUTO) 42.2 % (21-51); MEAN CORPUSCULAR HEMOGLOBIN 29.1 PG (27.0-31.0); MEAN CORPUSCULAR HGB CONC 33.2 g/dL (33.0-36.5); MEAN CORPUSCULAR VOLUME 87.7 FL (78-98); MEAN PLATELET VOLUME 8.3 FL (7.4-10.4); MONOCYTES # (AUTO) 0.8 X10'3 (0-0.9); MONOCYTES % (AUTO) 10.2 % (2-12); NEUTROPHILS # (AUTO) 3.3 X10'3 (1.8-7.7); NEUTROPHILS % (AUTO) 42.5 % (42-75); PLATELET COUNT 324 X10'3 (140-440); RED BLOOD COUNT 4.27 X10'6 (4.20-5.60); RED CELL DISTRIBUTION WIDTH 16.4 % (11.5-14.5); WHITE BLOOD COUNT 7.7 X10'3 (4.5-11.0)
[2025-01-08 07:35] LABS: ALANINE AMINOTRANSFERASE 18 U/L (12-78); ALBUMIN 3.1 G/DL (3.4-5.0); ALKALINE PHOSPHATASE 40 IU/L (46-116); ANION GAP 6 (8-16); ASPARTATE AMINO TRANSFERASE 22 U/L (10-37); BILIRUBIN,TOTAL 0.6 MG/DL (0.1-1.0); BLOOD UREA NITROGEN 16 MG/DL (7-18); BUN/CREATININE RATIO 22.5 (10.0-20.0); CALCIUM 8.6 MG/DL (8.5-10.1); CHLORIDE 100 MMOL/L (99-107); CREATININE 0.71 MG/DL (0.40-0.90); GLUCOSE 102 MG/DL (70-104); POTASSIUM 4.2 MMOL/L (3.5-5.1); SODIUM 135 MMOL/L (135-145); TOTAL CARBON DIOXIDE 28.6 MMOL/L (24-32); TOTAL PROTEIN 6.3 G/DL (6.4-8.2); eCRCL 66 ML/MIN; eGFR 86 ML/MIN
[2025-01-08 07:57] VITALS: BP 130/62; PULSE 77; RESP 16; TEMP 97.7; O2SAT 100
[2025-01-08 08:00] VITALS: RESP 16; O2SAT 100
[2025-01-08] MEDS: atorvastatin 20mg tablet PO SCH (08:00)
[2025-01-08] MEDS: clopidogrel 75mg tablet PO SCH (08:34)
[2025-01-08 10:50] VITALS: BP 122/78; PULSE 90; RESP 16; TEMP 97.2; O2SAT 97
--- NOTE | 2025-01-08 11:50 | PROGRESS NOTE ---
Progress Note Cardiology Providers to CC ~ Subjective Subjective PATIENT SEEN AND EXAMINED THIS MORNING. OVERALL DOING WELL. RESTING COMFORTABLY. Objective Result Diagram: 01/08/25 0650 01/08/25 0650 Objective GENERAL: NORMAL BODY HABITUS, NO ACUTE DISTRESS, HEENT: SCLERAE CLEAR, PERRL, GUMS WITHOUT LESIONS OR BLEEDING, OROPHARYNX CLEAR WITHOUT ERYTHEMA OR EXUDATE. NECK: SUPPLE WITHOUT ENLARGEMENT OF THE THYROID, OR LYMPHADENOPATHY, CHEST: NORMAL SIZE AND SHAPE, NO TENDERNESS, NONLABORED BREATHING, BREATH SOUNDS DIMINISHED BIBASAL HEART: REGULAR IN RATE AND RHYTHM, S1 AND S2 NORMAL, NO S3-S4 OR MURMURS. ABDOMEN: SOFT, NONTENDER, NO ORGANOMEGALY, BOWEL SOUNDS PRESENT. EXTREMITIES: TRACE EDEMA. Coagulation Studies Laboratory Tests Test 01/06/25 04:00 01/08/25 01:48 Prothrombin Time 10.9 SECONDS (9.0-12.0) INR International Normalized Ratio 1.1 INR APTT (Heparin Protocol) 29 SECONDS (45-60) L Coagulation Comments Problem\Assessment\Plan Additional Plan 1. * A 54-year-old female with COPD exacerbation, could not have regular oxygen and BiPAP for the last 4 days, under increased stress and anxiety, increased shortness of breath, getting better with resumption of her oxygen therapy; however, management per hospitalist. 2. * Mild elevation troponin, probably type 2, may be related to her prolonged hypoxia or lack of oxygen. Myocardial perfusion scan shows small anterior reversible defect. Option of continued medical therapy versus further evaluation with coronary angiography, risks benefits alternative options Discussed in detail with the patient. Patient wants to quit smoking and can try medical therapy. Recommend aspirin Plavix, beta blockers and statins. Patient to follow up with PMD. 3. * Diabetes, hypertension, hyperlipidemia. Extensively counseled on coronary risk factor modification to keep her A1c less than 7%, LDL less than 55 mg%, systolic blood pressure less than 130 mmHg. 4. * Diastolic CHF since 2013. Continue Diuretics. Titrate diuretics as required. 5. * COPD with continued smoking. Counseled on smoking cessation. 6. * Obstructive sleep apnea, on CPAP and oxygen at nighttime since 2018. Continue the same. Other comorbidities include morbid obesity, DJD, psychiatric problem with bipolar and schizophrenia. DUSTIN VERAS MD January 08, 2025 11:50
[2025-01-08 12:38] VITALS: PULSE 83; RESP 16; O2SAT 96
[2025-01-08] MEDS ORDERED: CLOP-32 PO (12:46)
--- NOTE | 2025-01-08 16:46 | DISCHARGE SUMMARY-Residence ---
Discharge Summary Providers to CC Resident Creating Document: ALBERT CHAPARRO RES ~ Discharge Summary Admission Diagnosis: Elevated troponin with Pulmonary HTN Hospital Course DATE OF ADMISSION: 01/06/2025 DATE OF DISCHARGE: 01/08/2025 Discharge Diagnosis\Comment: # acute hypoxic respiratory failure from acute on chronic CHFpEF 65% on 01/06/2025 exacerbation # Type II NSTEMI # pulmonary hypertension # COPD, asthma-not exacerbation # ADI class four obesity BMI 50 # T2DM # hyperlipidemia # electrolyte imbalance-hyponatremia # history of multiple mental issues- bipolar disorder, schizophrenia, mood disorder, anxiety, psychogenic dysphonia # chronic substance abuse-tobacco, alcohol, marijuana # UTI- Ecoli Operations\Procedures: Nuclear medicine cardiac stress test Consultants: Dr. Naik, cardiology Complications: None Condition on DC: Stable New Medications: Clopidogrel Bisulfate (Plavix) 75 Mg Tablet 1 TAB PO DAILY for 30 Days, #30 TAB 0 Refills Continued Medications: Albuterol Sulfate (Ventolin Hfa) 90 Mcg Hfa.aer.ad 2 PUFFS INH Q6H PRN for wheezing for 30 Days, #18 GM 0 Refills Aspirin (Aspirin) 81 Mg Tab.chew 1 TAB PO DAILY for 30 Days, #30 TAB Buspirone Hcl* (Buspar*) 10 Mg Tablet 2 TAB PO HS, TAB Carvedilol (Coreg) 3.125 Mg Tablet 1 TAB PO Q12H for 30 Days, #60 TAB Cholecalciferol (Vitamin D) 1,000 Unit Tablet 1 TAB PO DAILY for 30 Days, #30 TAB [address]* (Depakote DR*) 500 Mg Tablet.dr 2 TAB PO DAILY for 30 Days, #60 TAB Fenofibrate Nanocrystallized (TRICOR tablet) 48 Mg Tablet 160 MG PO DAILY for 30 Days, #30 TAB 0 Refills Fluticasone/Umeclidin/Vilanter (Trelegy Ellipta 200-62.5-25) 200-62.5 Blst.w.dev 1 PUFFS INH DAILY for 30 Days, #60 EA 0 Refills Folic Acid* (Folic Acid*) 0.4 Mg Tablet 1 MG PO DAILY for 30 Days, #30 TAB Furosemide (Lasix) 20 Mg Tablet 1 TAB PO DAILY for 30 Days, #30 TAB 0 Refills Hydrocodone Bit/Acetaminophen 5/325 MG ([place] 5/325 MG) 5 Mg/325 Mg Tablet 1 TAB PO Q4HPRN PRN for pain for 3 Days, #40 TAB Losartan Potassium* (Cozaar*) 25 Mg Tablet 1 TAB PO DAILY for 30 Days, #30 TAB Lurasidone HCl (Latuda) 80 Mg Tablet 1 TAB PO BID for 30 Days, #30 TAB 0 Refills Metformin Hcl (Metformin Hcl) 500 Mg Tablet 1 TAB PO Q12H for 30 Days, #60 TAB 0 Refills Topiramate (Topiramate) 50 Mg Tablet PO Q12H for 30 Days, #60 TAB 0 Refills Discharge Summary: A 54 years old female who was transferred from the outside facility for the elevated Trop and hypoxic episode with a past medical history of asthma, COPD, T2 DM, diastolic CHFpEF 65% on 01/06/2025, hypertension, ADI with class four obesity BMI 50, pulmonary hypertension, UTI history, mental issues with bipolar disorder, schizophrenia, mood disorder, anxiety, psychogenic dysphonia and S/p multiple orthopedic surgeries presented with acute progressive shortness of breath and generalized weakness with the given away bilateral feet to stand up over one night. Hospital course: Patient was admitted to the hospital floor for her acute hypoxic respiratory failure from the CHF exacerbation and NSTEMI for further management care. Patient was supply with the oxygen support to touch her baseline throughout her hospitalization. She was given time dose of IV Lasix 40 mg in ER followed by IV Lasix 20 mg b.i.d. for her elevated proBNP with 231. Cardiology Dr Naik was requested for the cardiology eval for her mildly elevated Troponin [id number] downtrending could properly from type 2 MN related to her prolonged hypoxia or lack of oxygen for which she was transferred out to here with IV Heparin. Myocardial perfusion scan shows small anterior reversible defect. She was offered to have the cardiology further evaluation with coronary angiography, risks benefits alternative options were proposed, however, patient denied to have catheterization and chose to remains on the continued medical therapy with DAPT (aspirin and Plavix), beta blockers and statins ( Cardiology recommended to switch fenofibrate to statin medication since the patient has a high ASCVD risk with active smoking setting, but patient dose not want to change and to consult with her PCP- [facility] for any changes). Extensively counseled on coronary risk factor modification to keep her A1c less than 7%, LDL less than 55 mg%, systolic blood pressure less than 130 mmHg by Cardiology team. For her tobacco abuse Dr. Keyes hospitalist spent 12 minutes for discussing smoking cessation with the patient including the risks of continuing smoked-lung cancer, stroke, heart attack, poor wound healing, increased facial Reglan, cigarette smoke also laser foul smell on the clothing and fibroids, recent MRSA skin infections. Also discussed about home cigarettes has been scientifically heavy equipment operating engineer to be as active as humanly possible and the patient refused any nicotine replacement therapy at the moment. All the medications and CPAP oxygenation at nighttime were continue during her hospitalization after medication reconciliation was done appropriately. Today, all her labs were reviewed showing WNL including normal WBC hemoglobin and platelet count, electrolytes were within normal limit, creatinine 0.71 and BUN 16, glucometer reading show 102, cholesterol 131, LDL 40, HDL 71. Her vitals were stable at the moment with temp 97.2� F, PA 90/minute, RR 16/minute, BP 122/78 mm Hg, pulse oximetry 97% on nasal cannula 2 L. All of her questions and concerns were addressed with our best knowledge before she was discharged. On examination, General: Well alert, well oriented, not confused, not agitated, not in acute distress, well cooperated during the physical. HEENT: Conjunctive are pink, sclerae clear, no icterus, pupil is equal in both sides, reactive to light, no ear discharge, no pharyngeal erythema or an edema, mouth and lips are moist. Neck: Supple, no JVD, no lymphadenopathy and thyromegaly. Lungs:Equal air entry on both lungs, no additional sounds Heart: S1-S2 regular sinus rhythm and, regular rate, no gallops, no rubs, no murmurs Abdomen: No visible peristalsis, Bowel sounds present on auscultation, soft, nontender, no guarding, no rigidity Extremities: No obvious deformities, no pitting edema bilaterally, capillary refill intact, able to wiggle toes both sides, peripheral pulsations are intact on both sides LIVESTOCK BREEDER: No focal neurological deficits, no motor and sensory weakness in all 4 extremities, could move all 4 extremities Musculoskeletal: No joint swelling, deformities, inflammations, and no scoliosis and back tenderness Skin: No active skin lesions and rashes Discharge instructions: - return to the ER for the any emergency situations including intolerable progessive shortness of breath, chest pain, etc -medication complaince -Strongly encourgaged for the cuttding down and quit using tobacco, etoh, and other substances etc -Suggested taking Metformin PO 500 mg Once daily since she is controlling her RBS well and her HbA1C was 5.3% -Medications collateral side effects were expalined -Suggested to consult with Psychiatric for the medications review in order to prevent any possible recurrent frequent ground levels falls from the side effects of the psych meds. -Continue using Trelogy machine at home, and CPap Or Bipap as instructed -Follow up with PCP and Psych appointments in 1-2 weeks after discharge. -should discuss with PCP for the Statin medication for her high ASCVD risk and stopped Fenofibrate -Complete the Oral Ciprofloxacin 500 mg BID for UTI for 5 days to prevent the unnecessary antibiotic resistance. Resident MD attestation: Patient was seen, examined and discussed with attending MD, Dr. Gurpreet CHAPARRO MD Internal Medicine Resident, PGY2 [facility] *Problems/Diagnosis: (1) NSTEMI (non-ST elevated myocardial infarction) Status: Resolved Total Time Spent on D/C: > 30 Minutes Date of Service: January 08, 2025 Billing Provider: DONIS GILL MD Common Visit Codes: 45511-OKG/[id number] DISCH DAY >30min ALBERT CHAPARRO, RES January 08, 2025 16:28 DONIS GILL MD January 08, 2025 18:52
[2025-01-08] MEDS ORDERED: CIPR-202 PO (17:02)
== END 2025-01-08 15:41 | disposition home or self-care (01) | DRG 133 ==
LOC: ER 03:42 → ED HOLD 05:00 → UNDOADMIN 05:00 → ED HOLD 08:18 → PCU 3S 09:59
PROVIDERS: ADMIT Internal Medicine Critical Care Medicine; ATTEND Family Medicine
PROC: 4A02XM4 Measurement of Cardiac Total Activity, External Approach (ICD-10-PCS; principal; 2025-01-07)
PROC: 3E033HZ Introduction of Radioactive Substance into Peripheral Vein, Percutaneous Approach (ICD-10-PCS; 2025-01-07)
DX: J96.01 Acute respiratory failure with hypoxia (principal); I21.A1 Myocardial infarction type 2; I50.33 Acute on chronic diastolic (congestive) heart failure; E87.1 Hypo-osmolality and hyponatremia; I27.20 Pulmonary hypertension, unspecified; Z68.43 Body mass index [BMI] 50.0-59.9, adult; I11.0 Hypertensive heart disease with heart failure; J44.1 Chronic obstructive pulmonary disease with (acute) exacerbation; E11.9 Type 2 diabetes mellitus without complications; N39.0 Urinary tract infection, site not specified; E78.5 Hyperlipidemia, unspecified; E66.89 Other obesity not elsewhere classified; F17.210 Nicotine dependence, cigarettes, uncomplicated; G47.33 Obstructive sleep apnea (adult) (pediatric); F31.9 Bipolar disorder, unspecified; F20.9 Schizophrenia, unspecified; Z88.8 Allergy status to other drugs, medicaments and biological substances; Z88.5 Allergy status to narcotic agent; Z79.82 Long term (current) use of aspirin; Z79.899 Other long term (current) drug therapy; Z79.84 Long term (current) use of oral hypoglycemic drugs
CPT/HCPCS: 36415; 71045; 78452; 80053; 80061; 80305; 81001; 82948; 83036; 83735; 83880; 84100; 84132; 84443; 84484; 85025; 85610; 85730; 87077; 87088; 87186; 93005; 93017; 93306; 94640; 94760; 96365; 96375; 96376; 97110; 97116; 97162; 99291; A4615; A9500; G0378; J1644; J1815; J1938; J2405; J2785